=== PATIENT | male | born 1990 | race African-American/Black ===

== ENCOUNTER 2025-04-15 01:49 | Emergency (ER) | payer BC, OTHER ==
[2025-04-15 02:03] VITALS: RESP 18; TEMP 97.3; BMI 19.3
[2025-04-15 02:20] LABS: ABSOLUTE IMMATURE GRANULOCYTES 0.02 x10^3/uL (0.0-0.031); BASOPHILS # 0.01 x10^3/uL (0.01-0.08); EOSINOPHIL % 4.2 % (0.8-7.0); EOSINOPHILS # 0.17 x10^3/uL (0.04-0.54); MCHC 29.6 g/dl (32.3-36.5); MEAN CELL VOLUME 93.5 fl (79.0-92.2); MEAN PLT VOLUME 9.0 fl (9.4-12.4); MONOCYTE # 0.32 x10^3/uL (0.30-0.82); MONOCYTE % 7.9 % (5.3-12.2); RDW 18.1 % (12.0-15.6)
[2025-04-15 02:29] LABS: INR 1.17 (0.83-1.09); PROTHROMBIN TIME (PATIENT) 12.9 SEC (9.7-13.0)
[2025-04-15 02:32] LABS: ACTIVATED PTT 34.2 SECONDS (25.2-36.5)
[2025-04-15 02:46] LABS: GLUCOSE,RANDOM 89 mg/dL (74-106)
[2025-04-15 02:47] LABS: TOT PROT 8.9 g/dl (6.4-8.2)
[2025-04-15 02:48] LABS: CO2 25 mmol/L (21-32)
[2025-04-15 02:49] LABS: ALK PHOS 213 U/L (40-150)
[2025-04-15 02:52] LABS: CREATININE 9.63 mg/dL (0.55-1.3); SGOT/AST 44 U/L (5-34); SGPT/ALT 27 U/L (0-55)
[2025-04-15] MEDS ORDERED: CALCIUM GLUC IN NACL, ISO-OSM 1 GM/50 ML BAG IVPB ONE (03:03)
[2025-04-15] MEDS ORDERED: ACETAMINOPHEN 325 MG TABLET (FP) ONE (03:24)
[2025-04-15] MEDS: CALCIUM GLUC IN NACL, ISO-OSM 1 GM/50 ML BAG IVPB ONE (03:27)
[2025-04-15] MEDS: ACETAMINOPHEN 325 MG TABLET (FP) PO ONE (03:27)
[2025-04-15 07:37] VITALS: BP 119/84; PULSE 77
== END 2025-04-15 08:06 | disposition home or self-care (01) ==
LOC: JER 01:49
PROC: 3E0337Z Introduction of Electrolytic and Water Balance Substance into Peripheral Vein, Percutaneous Approach (ICD-10-PCS; principal; 2025-04-15)
DX: D64.9 Anemia, unspecified (principal)
CPT/HCPCS: 36415; 80053; 85025; 85610; 85730; 86850; 86900; 86901; 93005; 93010; 96360; 99284-25